=== PATIENT | female | born 1965 | race Caucasian/White ===

== ENCOUNTER 2024-08-19 06:48 | Day surgery (SDC) | payer BC, SELFPAY ==
[2024-08-19 07:20] VITALS: BP 144/85; PULSE 73; RESP 18; TEMP 36.6; O2SAT 97; BMI 19.8
[2024-08-19] MEDS: LACTATED RINGERS 1000ML 1,000 ML 100 ML IV (07:27)
--- NOTE | 2024-08-19 07:27 | EXP.ANES.CKL ---
[facility] Disclaimer: The information contained in this section may have been updated after the patient was seen, as this information can be updated by other users. Medical History Colon cancer Depression Anxiety Surgical History (Updated 08/19/24 @ 07:18 by Janie Juarez RN) H/O resection of large bowel History of bunionectomy History of bilateral carpal tunnel release History of reversal of ileostomy H/O ileostomy Family History (Updated 08/19/24 @ 07:18 by Janie Juarez RN) Other No significant family history Social History Smoking Status: Current every day smoker tobacco type: cigarettes packs per day: 1 alcohol intake: never substance use type: denies use current occupational status: employed Travel in the last 8 weeks: None household members: spouse housing: house current occupation: high school current occupational exposures/hazards: Yes caffeine: No [facility] Anesthesia Checklist Patient Identification Patient Identification: Arm Band, Family and Verbal (Name & ) Structural Data Admitted From: Home Planned Operative Procedure/s: Colonoscopy Consent for Planned Operative Procedure(s) Verified: Yes Verified Documents: Surgical Consent and History and Physical NPO Status Verified Time NPO: 03:15 Additional verifications Patient : No Anesthesia Reactions: Yes Previous Colonoscopy: Yes Cardiovascular Assessment Heart Sounds: S1 & S2 Pulse Rhythm: Irregular Peripheral Edema: No Airway Assessment Mallampati Score:: Class II C-Spine Mobility Assessed: Yes (FROm demonstrated) TMJ Mobility Assessed: Yes Dentition: Good Dentition (Nothing loose per pt.) Neurological Assessment Level of Consciousness: Awake, Alert and Appropriate Hx Seizures: No Numbness or tingling in extremities: No Anesthesia Plan Anesthesia Risk discussed: Yes Anesthesia Plan: Verified ASA Class: II Anesthesia Type: MAC
[2024-08-19 07:31] LABS: POC Glucose,Bedside 117 (70-110)
--- NOTE | 2024-08-19 08:14 | P.HP_ITS ---
History of Present Illness *Admission Date: 08/19/24 *Reason for visit:: Personal history of colon cancer *History of present illness: Mrs. Fontana is a 59-year-old female who is here for surveillance colonoscopy secondary to a personal history of colon cancer at the age of 46. She underwent low anterior resection in 2011. She had normal surveillance colonoscopies in 2013 and again in July 2019.. The examination is deemed medically necessary for colonoscopy. The patient has been seen, interviewed and examined prior to the procedure by both myself and the anesthesia provider. [facility] Disclaimer: The information contained in this section may have been updated after the patient was seen, as this information can be updated by other users. Medical History (Updated 08/19/24 @ 08:16 by Ashish Jaimes II, MD) Colon cancer Depression Anxiety Surgical History (Updated 08/19/24 @ 07:18 by Janie Juarez RN) H/O resection of large bowel History of bunionectomy History of bilateral carpal tunnel release History of reversal of ileostomy H/O ileostomy Family History (Updated 08/19/24 @ 07:18 by Janie Juarez RN) Other No significant family history Social History (Updated 08/19/24 @ 07:28 by Alice Dumas CRNA) Smoking Status: Current every day smoker tobacco type: cigarettes packs per day: 1 alcohol intake: never substance use type: denies use current occupational status: employed Travel in the last 8 weeks: None household members: spouse housing: house current occupation: high school current occupational exposures/hazards: Yes caffeine: No Other Medical History Have you received the Flu Vaccine for this season: Yes Have you received the Pneumonia Vaccine: No Review of Systems Review of Systems Review of systems (narrative): Negative *Cardiovascular Comments: Negative *Gastrointestinal Comments: Negative *Genitourinary Comments: Negative *Musculoskeletal Comments: Negative *Neurologic Comments: Negative Meds Home Medications and Allergies Home Medications ?Medication ?Instructions ?Recorded ?Confirmed ?Type aspirin 81 mg tablet,delayed 81 mg PO DAILY HEART HEALTH 06/18/18 08/19/24 History release (Aspir-) escitalopram oxalate 10 mg tablet 10 mg PO DAILY Depression 06/18/18 08/19/24 History (Lexapro) melatonin 5 mg tablet 5 mg PO HS SLEEP 06/18/18 08/19/24 History esbslifonodo-Hc-eclk-minerals 18 1 ea PO DAILY Supplement 06/18/18 08/19/24 History mg-0.4 mg tablet (Maximum Daily Multivitamin) omega-3 fatty acids-fish oil 340 1 ea PO DAILY Supplement 06/18/18 08/19/24 History mg-1,000 mg capsule (Fish Oil) metformin 500 mg tablet 500 mg PO DAILY 08/19/24 08/19/24 History New Prescriptions to Start Prescriptions: Allergies Allergy/AdvReac Type Severity Reaction Status Date / Time No Known Allergies Allergy Verified 08/19/24 07:18 Exam Data for Last 24 hours Vital signs and Labs for Last 24 Hours: Temp Pulse Resp BP Pulse Ox O2 Del Method 97.9 F 73 18 144/85 H 97 Room Air 08/19/24 07:20 08/19/24 07:20 08/19/24 07:20 08/19/24 07:20 08/19/24 07:20 08/19/24 07:20 Laboratory Results - last 24 hr 08/19/24 07:24: POC Glucose 117 H I & O for Last 24 hours: Intake & Output 08/16/24 08/17/24 08/18/24 08/19/24 23:59 23:59 22:59 23:59 Weight 105 lb *Routine HEENT Exam Head: Present normocephalic Eye: Present EOMI and PERRL ENT: Present mucous membranes moist *Routine Neck Exam Neck: Present supple *Routine Respiratory Exam Respiratory: Present CTA bilaterally *Routine Cardiovascular Exam Cardiovascular: Present RRR *Routine Abdominal Exam Abdominal: Present soft and normoactive bowel sounds; Absent tenderness *Routine Rectal Exam Rectal:: deferred *Routine Genitalia Exam Genitalia:: deferred *Routine Extremities Exam Extremities: Absent cyanosis, clubbing or edema *Routine Skin Exam Skin: Present warm; Absent rash *Routine Neurological Exam Neurological: Present alert and oriented X3 Assessment and Plan *Assessment and plan (1) Personal history of colon cancer: Status: Acute Category: Medical Code(s): Z85.038 - Personal history of other malignant neoplasm of large intestine Plan A/P: 1. Personal history of colon cancer in 2011 is the preprocedural diagnosis. The patient will be anesthetized/sedated using MAC sedation. The patient has been seen and examined. Cardiac and lung assessment prior to the examination is stable. Proceed with planned colonoscopy.
[2024-08-19 08:17] VITALS: O2SAT 97
--- NOTE | 2024-08-19 08:20 | P.PCN_ITS ---
[facility] Procedure Note Date: 08/19/24 Time: 08:37 Procedure Note:: Colonoscopy Procedure Report: Colonoscopy with cold snare polypectomy Endoscopist: Ashish Jaimes II, MD Referring physician: Aarti Garcia DO Date of Procedure: August 19, 2024 Equipment: Olympus 190 variable stiffness pediatric colonoscope Sedation: MAC sedation Indication: Mrs. Fontana is a 59-year-old female who is here for follow-up surveillance colonoscopy due to a personal history of colon cancer (sigmoid). T he patient did have low anterior resection in 2011. She had normal surveillance in 2013. Her last surveillance colonoscopy in July 2019 was normal. The patient does take fiber capsules 2 p.o. twice daily. She also takes dicyclomine/Bentyl twice daily. She will have a day of constipation and then followed by diarrhea. She reports no rectal bleeding, abdominal pain, weight loss or family history of colon cancer. Procedure: Prior to the procedure, a history and physical exam was performed, and patient's medications and allergies were reviewed. The risks, benefits and alternatives of the sedation and procedure were discussed with the patient. All questions were answered and informed consent was obtained. The patient was brought to the procedure room. Patient identification and proposed procedure were verified by the physician and the nurse. The patient was placed in a left lateral decubitus position and the scope was passed under direct vision. Throughout the procedure, the patient's blood pressure, pulse, and oxygen saturations were monitored continuously. The colonoscopy was accomplished without difficulty. The patient tolerated the procedure well. Findings: On digital rectal examination there was normal rectal tone. There were no external hemorrhoids. The colonoscope was introduced through the anal canal to the rectum and advanced to the cecum. The ileocecal valve and appendiceal orifice were identified. The scope was advanced a short distance into the ileum which appeared grossly normal. The scope was then withdrawn into the colon. The cecum, ascending and transverse colon and mucosa were grossly normal. There were scattered diverticuli throughout the descending and remaining sigmoid colon (LEFT colon). There was a single 5 mm polyp in the descending colon removed via cold snare polypectomy. The anastomotic site was normal with normal colocolonic anastomosis. The rectum itself was normal. There was a smaller rectal vault. Upon retroflexion within the rectum there were grade 1 internal hemorrhoids. The preparation was good throughout with [place] Preparation Score of 8 out of 9. The cecal time was 12 minutes. Impression: 1. Descending colon polyp (5 mm) 2. Left-sided diverticulosis 3. Small rectal vault with small grade 1 internal hemorrhoids Plan: I will follow-up the polyp histology and based upon her personal history of colon cancer, I would continue surveillance at a 5-year interval. I would switch to psyllium powder bulking fiber supplementation. We will discuss additional measures to control her IBS.
[2024-08-19 08:42] VITALS: BP 77/46; PULSE 67; RESP 16; TEMP 36.8; O2SAT 95
[2024-08-19 08:52] VITALS: BP 92/60; PULSE 73; RESP 16; O2SAT 97
[2024-08-19 09:02] VITALS: BP 104/64; PULSE 61; RESP 17; O2SAT 96
[2024-08-19 09:12] VITALS: BP 112/72; PULSE 61; RESP 17; O2SAT 97
== END 2024-08-19 09:33 | disposition home or self-care (01) ==
PROVIDERS: PCP Student in an Organized Health Care Education/Training Program; Visit Provider Internal Medicine Gastroenterology
PROC: (CPT 45385; principal; 2024-08-19 08:30)
DX: K63.5 Polyp of colon (principal); K57.30 Diverticulosis of large intestine without perforation or abscess without bleeding; K64.0 First degree hemorrhoids; Z85.038 Personal history of other malignant neoplasm of large intestine; Z72.0 Tobacco use
CPT/HCPCS: 45385; 82962; J7120

== ENCOUNTER 2025-02-05 13:36 | Outpatient (CLI) | payer MEDICAID, SELFPAY ==
--- NOTE | 2025-02-05 13:45 | CT_ITS ---
FINAL REPORT TECHNIQUE: Thin section axial CT images with coronal and sagittal reformats were performed through the neck. This study was performed with techniques to keep radiation doses as low as reasonably achievable (ALARA). Individualized dose reduction techniques using automated exposure control or adjustment of mA and/or kV according to the patient''s size were employed. CLINICAL HISTORY: Left-sided lymphadenopathy COMPARISON: None FINDINGS: Exam is limited without intravenous contrast. The nasopharynx, oropharynx, epiglottis, and larynx are without acute abnormality. The thyroid is unremarkable. The salivary glands are unremarkable. There are small bilateral cervical lymph nodes. There is no lymphadenopathy. Limited evaluation of the upper lungs reveals emphysema. There is a 14 mm nodule in the superior segment of the left lower lobe seen on axial image 94. This nodule is cavitary. There are few borderline mediastinal lymph nodes. There is no acute osseous abnormality. IMPRESSION: Exam limited without intravenous contrast. No significant cervical lymphadenopathy. Cavitary 14 mm left lower lobe pulmonary nodule, neoplasm not excluded. Recommend chest CT with contrast for further evaluation. Reviewed, Interpreted and Dictated by Vibha Ca MD Transcribed by Reva Cantu Authenticated and [facility]
== END 2025-02-05 23:59 | disposition home or self-care (01) ==
LOC: RAD 13:37
PROVIDERS: PCP Student in an Organized Health Care Education/Training Program; Visit Provider Nurse Practitioner
DX: R59.0 Localized enlarged lymph nodes (principal)
CPT/HCPCS: 70490